=== PATIENT | male | born 1950 | race Caucasian/White ===

== ENCOUNTER 2017-10-19 18:35 | Inpatient (IN) | payer OTHER ==
[~2017-10-19] VITALS: Ht 185.4 cm; Wt 132.9 kg
[2017-10-19 18:35] VITALS: BP 105/48
[~2017-10-19 18:35] MED LIST: ASPIR 8181 MG PO; LEVAQUIN 500 M500 MG PO; TESSALON PERLE100 MG PO
[2017-10-19 19:11] LABS: ABSOLUTE NEUTROPHILS 17.4 thou/uL (1.4-8.2); BASOPHILS 0.2 % (0.0-2.0); EOSINOPHILS 0.5 % (0.0-3.0); HEMATOCRIT 45.8 % (42.0-52.0); HEMOGLOBIN 15.7 gm/dL (14.0-18.0); LYMPHOCYTES 3.3 % (24.0-44.0); MCH 32.3 pg (26.0-34.0); MCHC 34.3 g/dL (28.0-37.0); MCV 93.9 fL (80.0-100.0); MONOCYTES 4.4 % (1.0-8.0); PLATELET COUNT 212 thou/uL (150-400); POLYS 91.6 % (36.0-66.0); RBC 4.88 mil/uL (4.50-6.00); RDW 14.6 % (10.5-14.5)
[2017-10-19 19:12] LABS: URINE BILIRUBIN NEGATIVE (Negative); URINE BLOOD 3+ (Negative); URINE CLARITY CLOUDY; URINE COLOR YELLOW; URINE GLUCOSE-RANDOM* NEGATIVE (Negative); URINE KETONES TRACE (Negative); URINE LEUKOCYTES-REFLEX 2+ (Negative); URINE NITRITE-REFLEX NEGATIVE (Negative); URINE PROTEIN (DIPSTICK) TRACE (Negative)
[2017-10-19 19:21] LABS: CREATININE 1.3 mg/dL (0.7-1.3); POTASSIUM 3.9 mmol/L (3.5-5.1)
[2017-10-19 19:23] LABS: CASTS None Seen /LPF (None Seen); SQUAMOUS 0-3 Few /LPF (0-3); URINE RBC 3-10 Few /HPF (0-2); URINE WBC-REFLEX >25 Many /HPF (0-5)
[2017-10-19 19:24] LABS: BACTERIA-REFLEX 1-9 Few /HPF (None Seen); CRYSTALS None Seen /LPF (None Seen)
[2017-10-19 19:28] LABS: ALBUMIN 3.7 g/dL (3.4-5.0); TOTAL BILIRUBIN 0.5 mg/dL (<0.1-1.0); TOTAL PROTEIN 7.7 g/dL (6.4-8.2)
[2017-10-19 21:36] VITALS: BP 97/48
[2017-10-19 22:37] VITALS: BP 130/90
[2017-10-19 22:58] VITALS: BP 98/43
[2017-10-20 04:46] VITALS: BP 97/62
[2017-10-20 05:19] LABS: HEMATOCRIT 42.7 % (42.0-52.0); HEMOGLOBIN 14.6 gm/dL (14.0-18.0); MCHC 34.3 g/dL (28.0-37.0); MCV 93.4 fL (80.0-100.0); RBC 4.58 mil/uL (4.50-6.00); RDW 14.5 % (10.5-14.5); WBC 19.9 thou/uL (4.0-11.0)
[2017-10-20 05:28] LABS: CALCIUM 8.2 mg/dL (8.5-10.1); CREATININE 1.1 mg/dL (0.7-1.3); POTASSIUM 3.6 mmol/L (3.5-5.1)
[2017-10-20 07:33] VITALS: BP 98/54
[2017-10-20 16:04] VITALS: BP 110/40
[2017-10-20 19:56] VITALS: BP 102/55
[2017-10-21 04:31] VITALS: BP 94/43
[2017-10-21 07:55] VITALS: BP 105/54
[2017-10-21 16:05] VITALS: BP 127/61
[2017-10-21 20:53] VITALS: BP 147/75
[2017-10-22 08:05] VITALS: BP 131/73
[2017-10-22 09:48] LABS: HEMATOCRIT 39.2 % (42.0-52.0); HEMOGLOBIN 13.6 gm/dL (14.0-18.0); MCH 32.3 pg (26.0-34.0); MCHC 34.8 g/dL (28.0-37.0); MCV 92.8 fL (80.0-100.0); RBC 4.22 mil/uL (4.50-6.00); RDW 14.5 % (10.5-14.5); WBC 13.2 thou/uL (4.0-11.0)
[2017-10-22 10:00] LABS: ALBUMIN 2.6 g/dL (3.4-5.0); CALCIUM 8.3 mg/dL (8.5-10.1); CREATININE 0.9 mg/dL (0.7-1.3); MAGNESIUM 1.9 mg/dL (1.8-2.4); POTASSIUM 3.7 mmol/L (3.5-5.1); TOTAL BILIRUBIN 0.3 mg/dL (<0.1-1.0); TOTAL PROTEIN 6.6 g/dL (6.4-8.2)
[2017-10-22] MEDS ORDERED: KEFLEX500 M1 PO (11:33)
[2017-10-22 12:27] VITALS: BP 131/73
== END 2017-10-22 12:48 | disposition home or self-care (01) | DRG 871 ==
LOC: ER 18:35 → EROBS 21:01 → 4W 21:01 → SICU 10-21 18:42
PROVIDERS: Internal Medicine; Nurse Practitioner Acute Care; Physician Assistant
DX: A41.9 Sepsis, unspecified organism (principal); E43 Unspecified severe protein-calorie malnutrition; N39.0 Urinary tract infection, site not specified; F17.210 Nicotine dependence, cigarettes, uncomplicated; R73.9 Hyperglycemia, unspecified; E66.9 Obesity, unspecified; Z68.38 Body mass index [BMI] 38.0-38.9, adult; Z79.82 Long term (current) use of aspirin; Z79.899 Other long term (current) drug therapy; Z80.42 Family history of malignant neoplasm of prostate
CPT/HCPCS: 10040; 15002

== ENCOUNTER 2018-02-21 09:44 | Emergency (ER) | payer OTHER ==
[~2018-02-21] VITALS: Ht 185.4 cm; Wt 129.3 kg
[~2018-02-21 09:44] MED LIST changes: +KEFLEX500 M1 PO
[2018-02-21] MEDS ORDERED: WELLBUTRIN XL300 MG PO (09:59)
[2018-02-21] MEDS ORDERED: LIPITOR 20 MG T20 M1 PO (10:00)
[2018-02-21 10:40] LABS: ABSOLUTE NEUTROPHILS 6.6 thou/uL (1.4-8.2); BASOPHILS 0.8 % (0.0-2.0); EOSINOPHILS 3.8 % (0.0-3.0); HEMATOCRIT 43.4 % (42.0-52.0); LYMPHOCYTES 19.1 % (24.0-44.0); MCH 32.4 pg (26.0-34.0); MCHC 34.6 g/dL (28.0-37.0); MCV 93.4 fL (80.0-100.0); MONOCYTES 7.3 % (1.0-8.0); PLATELET COUNT 288 thou/uL (150-400); RBC 4.64 mil/uL (4.50-6.00); RDW 14.1 % (10.5-14.5); WBC 9.5 thou/uL (4.0-11.0)
[2018-02-21 10:50] LABS: CALCIUM 9.2 mg/dL (8.5-10.1); CREATININE 1.1 mg/dL (0.7-1.3); POTASSIUM 4.4 mmol/L (3.5-5.1)
[2018-02-21] MEDS ORDERED: ATIVAN0.5 MG PO (12:13)
[2018-02-21 12:15] VITALS: BP 148/88
== END 2018-02-21 13:00 | disposition home or self-care (01) ==
LOC: ER 09:44
PROVIDERS: Nurse Practitioner Family
DX: N63.0 Unspecified lump in unspecified breast (principal); F41.9 Anxiety disorder, unspecified; E78.00 Pure hypercholesterolemia, unspecified; F17.210 Nicotine dependence, cigarettes, uncomplicated

== ENCOUNTER 2019-05-19 09:12 | Inpatient (IN) | payer OTHER ==
[~2019-05-19] VITALS: Ht 185.4 cm; Wt 122.9 kg
[~2019-05-19 09:12] MED LIST changes: +ATIVAN0.5 MG PO; +LIPITOR 20 MG T20 M1 PO; +WELLBUTRIN XL300 MG PO
[2019-05-19 09:14] VITALS: BP 165/84
[2019-05-19 09:39] LABS: ABSOLUTE NEUTROPHILS 6.7 thou/uL (1.4-8.2); BASOPHILS 0.5 % (0.0-2.0); EOSINOPHILS 3.5 % (0.0-3.0); HEMATOCRIT 46.7 % (42.0-52.0); HEMOGLOBIN 15.7 gm/dL (14.0-18.0); LYMPHOCYTES 16.6 % (24.0-44.0); MCH 32.3 pg (26.0-34.0); MCHC 33.7 g/dL (28.0-37.0); MCV 95.9 fL (80.0-100.0); MONOCYTES 7.6 % (1.0-8.0); PLATELET COUNT 208 thou/uL (150-400); POLYS 71.8 % (36.0-66.0); RBC 4.87 mil/uL (4.50-6.00); RDW 14.2 % (10.5-14.5); WBC 9.3 thou/uL (4.0-11.0)
[2019-05-19 09:48] LABS: CALCIUM 9.1 mg/dL (8.5-10.1); POTASSIUM 4.2 mmol/L (3.5-5.1)
[2019-05-19 09:51] LABS: APTT 27.7 Seconds (24.5-32.8); PROTIME 10.5 Seconds (9.3-11.4)
[2019-05-19 09:54] LABS: ALBUMIN 3.7 g/dL (3.4-5.0); TOTAL BILIRUBIN 0.5 mg/dL (<0.1-1.0); TOTAL PROTEIN 7.8 g/dL (6.4-8.2)
[2019-05-19 11:03] LABS: CHOLESTEROL 241 mg/dL (<200); HDL CHOLESTEROL 55 mg/dL (>40); LDL CHOLESTEROL 166 mg/dL (<100); TC:HDL 4.4 Ratio (Not establshd); TRIGLYCERIDE 103 mg/dL (<150); VLDL 21 mg/dL (<40)
[2019-05-19 11:04] VITALS: BP 129/79
[2019-05-19 11:10] LABS: URINE BILIRUBIN NEGATIVE (Negative); URINE BLOOD NEGATIVE (Negative); URINE CLARITY CLEAR; URINE COLOR YELLOW; URINE GLUCOSE-RANDOM* NEGATIVE (Negative); URINE KETONES NEGATIVE (Negative); URINE LEUKOCYTES-REFLEX NEGATIVE (Negative); URINE NITRITE-REFLEX NEGATIVE (Negative); URINE PROTEIN (DIPSTICK) NEGATIVE (Negative); URINE UROBILINOGEN 0.2 E.U./dl (0.2-1.0)
[2019-05-19 11:29] VITALS: BP 126/76; BP 144/68
[2019-05-19 11:50] VITALS: BP 152/88
[2019-05-19 15:30] VITALS: BP 125/59
--- NOTE | 2019-05-19 16:16 | NUR ---
ASSUMED CARE AT 1150. ASSESSMENT CHARTED. DAUGHTER AT BEDSIDE UPON ADMISSION. ADMISSION PAPERWORK SIGNED. ADMISSION CHARTING COMPLETE. MRI COMPLETE. PT STATES NO PAIN AT THIS TIME. NEUROLOGIST HAS SPOKEN WITH THE PATIENT.
[2019-05-19 16:17] LABS: FOLIC ACID 8.2 ng/mL (8.6-58.9)
--- NOTE | 2019-05-19 18:12 | NUR ---
ASSUMED CARE FOR PT AT 1150. ASSESSMENTS CHARTED. PT STATES NO PAIN. MRI AND CT COMPLETE. PT LIVES WITH DAUGHTER AND EXTENDED FAMILY.
[2019-05-19 20:10] VITALS: BP 118/66
[2019-05-20 00:06] LABS: GLYCOHEMOGLOBIN (HGB A1C) 6.1 % (4.8-5.6)
[2019-05-20 00:15] VITALS: BP 121/70
--- NOTE | 2019-05-20 01:28 | NUR ---
ASSESSMENTS CHARTED. MEDS GIVEN CHARTED. PATIENT CAME IN WITH POSSIBLE STROKE. ALERT AND ORIENTED, NSR ON TELEMETRY. LUNGS ARE CLEAR ON ROOM AIR. PATIENT HAS A FAIR AMOUNT OF YELLOW THICK SPUTUM PRODUCTION WITH PRODUCTIVE COUGH. ACCU CHECK ACHS NO SSI. UP WITH STANDBY ASSIST DUE TO FALL AT HOME. HX OF BILATERAL SHOULDER ARTHRITIS. SKIN IS INTACT. CXR- NO ACUTE PULM. PROCESS, MRI BRAIN-UNREMARKABLE, CT CHEST-CHRONIC LOWER LOBE BRONCHIECTASIS, MRI NECK-UNREMARKABLE. FALL PRECAUTIONS IN PLACE. DENIES CURRENT PAIN.
[2019-05-20 04:39] VITALS: BP 104/52
[2019-05-20 07:52] VITALS: BP 134/85
--- NOTE | 2019-05-20 10:20 | EKG ---
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 : 1950 Requested By: Madhuri Martinez Order Number: [id number] MD: Prashant June Measurements Intervals [place] Rate: 70 P: 52 NJ: 179 QRS: 65 QRSD: 119 T: 60 QT: 416 QTc: 449 Interpretive Statements Sinus rhythm Nonspecific intraventricular conduction delay Compared to ECG 07/24/2014 14:50:15 Intraventricular conduction delay now present Electronically Signed On 05-20-2019 10:19:55 CERTIFIED PEER SPECIALIST by Prashant June [email or web address] <ELECTRONICALLY SIGNED> By: Prashant June MD 05/20/19 1019 0929 0929 MD DULCE Manley
[2019-05-20 11:27] VITALS: BP 124/66
[2019-05-20 16:38] VITALS: BP 125/62
[2019-05-20 19:16] VITALS: BP 103/62
--- NOTE | 2019-05-20 19:20 | NUR ---
ASSUMED CARE OF PATIENT AT 0700. ASSESSMENTS CHARTED. TELE PRINTED AND PLACED IN CHART. PATIENT COMPLAINS OF BILATERAL SHOULDER PAIN WHICH WAS HELPED WITH TYLENOL. PATIENT'S DAUGHTER AT THE BEDSIDE TODAY WITH NUMEROUS QUESTIONS ABOUT ALL OF THE PATIENT'S CARE. PATIENT AMBULATED THE UNIT. PATIENT TO CONTINUE WITH POC.
--- NOTE | 2019-05-21 02:04 | NUR ---
ASSESSMENTS CHARTED, MEDS GIVEN CHARTED. PATIENT MOVED TO ROOM 201 DURING THE DAY DUE TO NOISE LEVEL ON THE UNIT. PATIENT DOING A NOCTURNAL OVERNIGHT STUDY WITH RESPIRATORY THERAPY. PATIENT HAS REQUESTED CONSULT WITH PSYC DOCTOR DUE TO INCREASED ANXIETY LEVELS.
[2019-05-21 04:36] VITALS: BP 129/70
[2019-05-21 07:51] VITALS: BP 133/61
--- NOTE | 2019-05-21 07:52 | NUR ---
Stat order of Echo, Echo called, no answer.
--- NOTE | 2019-05-21 09:36 | NUR ---
CALLING ECHO AGAIN, STILL NO RESPONSE.
--- NOTE | 2019-05-21 10:43 | NUR ---
Was notified that the swallowing test is negative, patient can be on his Carb Cntrl DM diet, thin liquid.
[2019-05-21 16:10] VITALS: BP 117/57
--- NOTE | 2019-05-21 16:37 | 2DMMODE ---
[facility] [address] [place] [address] 2 D/M-MODE ECHOCARDIOGRAM Name: AYAH YEE Room #: 201-P ADM IN M.R.#: [id number] Admission: 05/19/19 Attend Phys: Madhuri Nicholson Discharge: Date of : 46 Report #: [id number] THIS REPORT FOR: //name// APPROVED REPORT Study performed: 05/21/2019 15:42:41 EXAM: Comprehensive 2D, Doppler, and color-flow Echocardiogram Patient Location: Bedside Room #: 201 Status: routine BSA: 2.42 HR: 66 bpm BP: 133/61 mmHg Rhythm: NSR Other Information Study Quality: Technically DifficultTechnically Limited Technically limited study due to body habitus, lung disease, inability to position patient. Indications COPD Diabetes Hypertension/HDD Possible TIA Echo Enhancing Agent Indication: Rule out Shunt Agent(s) / Amount(s) Used: Agitated Saline 7 cc 2D Dimensions IVC: 17.00 mm Aortic Valve AoV Peak Jon.: 1.40 m/s AO Peak Gr.: 7.89 mmHg LVOT Max P.48 mmHg LVOT Max V: 1.06 m/s Mitral Valve E/A Ratio: 0.8 MV Decel. Time: 264.74 ms MV E Max Jon.: 0.78 m/s MV A Jon.: 0.92 m/s [facility] [address] [place] [address] 2 D/M-MODE ECHOCARDIOGRAM Name: AYAH YEE Room #: 201-P ADM IN M.R.#: [id number] Admission: 05/19/19 Attend Phys: Madhuri Nicholson Discharge: Date of : 46 Report #: [id number] MV PHT: 76.77 ms IVRT: 138.41 ms Pulmonary Vein P Vein S: 0.40 m/s P Vein A: 0.19 m/s P Vein D: 0.35 m/s P Vein A Dur.: 87.7 msec P Vein S/D Ratio: 1.14 Left Ventricle The left ventricle is normal size. There is normal LV segmental wall motion. There is normal left ventricular wall thickness. Left ventricular systolic function is normal. The left ventricular ejection fraction is within the normal range. LVEF is 60-65%. Mild diastolic dysfunction is present (impaired relaxation pattern). Right Ventricle The right ventricle is normal size. The right ventricular systolic function is normal. Atria The left atrium size is normal. No shunting seen on a very limited contrast bubble injection The right atrium size is normal. Aortic Valve The aortic valve is grossly normal. No aortic regurgitation is present. There is no aortic valvular stenosis. Mitral Valve The mitral valve is normal in structure. There is no mitral valve regurgitation noted. No evidence of mitral valve stenosis. Tricuspid Valve The tricuspid valve is normal in structure. There is no tricuspid valve regurgitation noted. Pulmonic Valve The pulmonary valve is normal in structure. There is no pulmonic valvular regurgitation. Great Vessels The aortic root is normal in size. IVC is normal in size and collapses >50% with inspiration. Pericardium There is no pericardial effusion. [facility] [address] [place] [address] 2 D/M-MODE ECHOCARDIOGRAM Name: AYAH YEE Room #: 201-P ADM IN .R.#: [id number] Admission: 05/19/19 Attend Phys: Madhuri Nicholson Discharge: Date of : 46 Report #: [id number] <Conclusion> Technically very limited study Left ventricular systolic function is normal. There is normal LV segmental wall motion. LVEF is 60-65%. Mild diastolic dysfunction No shunting seen on a very limited contrast bubble injection The aortic valve is grossly normal. No aortic regurgitation or stenosis The mitral valve is normal in structure. No mitral valve regurgitation Unable to assess pulmonary artery pressure. There is no pericardial effusion. <ELECTRONICALLY SIGNED> By: Tariq Castro MD, FACC 05/21/191635 35 35 Tariq Castro MD, FACC /INF
--- NOTE | 2019-05-21 17:22 | NUR ---
A/O, clam and cooperative; afebrile; denied pain; no n/v; reported that video shallowing test done, patient can have Carb Contrl DM diet with thin liquid; echo showed normal results, EF 60=65%; BG within control; room air. Patient sits on the chair, watching TV, will keep monitoring.
[2019-05-21 19:03] VITALS: BP 114/56
[2019-05-21 20:06] LABS: ANA INTERPRETATION Negative (())
[2019-05-22 00:45] VITALS: BP 123/65
[2019-05-22 03:47] VITALS: BP 110/46
[2019-05-22 07:19] VITALS: BP 133/70
--- NOTE | 2019-05-22 07:27 | NUR ---
patient cares were assumed at shift change , meds were passed after patient was assessed. patient had family at the bed clyde till approx 11pm. patient went to bed after and sleept the rest of this shift. no am meds but a flush and nursing did not awake him for that. hourly rounds were done
[2019-05-22] MEDS ORDERED: NORVASC10 MG PO (10:06)
[2019-05-22] MEDS ORDERED: LIPITOR80 MG PO (10:06)
[2019-05-22] MEDS ORDERED: CLOPIDOGREL75 MG PO (10:06)
[2019-05-22] MEDS ORDERED: GLUCOPHAGE500 MG PO (10:07)
[2019-05-22] MEDS ORDERED: LEXAPRO 10 MG T10 M1 PO (10:07)
[2019-05-22] MEDS ORDERED: FOLIC ACID1 MG PO (10:07)
[2019-05-22] MEDS ORDERED: ADVAIR 250-501 EACH INH (10:08)
[2019-05-22 10:53] VITALS: BP 133/70
[2019-05-22 12:02] VITALS: BP 133/70
--- NOTE | 2019-05-22 12:46 | NUR ---
FAXED REFERRAL TO [facility] SPOKE WITH COURTNEY IN INTAKE SHE RECEIVED REFERRAL AND CAN ACCEPT. PT DISCHARGING TODAY TO HOME WITH [facility] HH FAXED DC ORDERS/SUMMARY SPOKE WITH COURTNEY SHE RECEIVED DC ORDERS AND WILL NOTIFY PT TIME OF VISITS.
[2019-05-22 13:00] VITALS: BP 133/70
--- NOTE | 2019-05-22 13:00 | NUR ---
PT CARE ASSUMED APPROX 0700. PT DENIED PAIN AND SOA. VSS. MEDICATION RELIEVED NAUSEA FROM EARLIER. PT UP WITH SBGisela. CRISSY. APPROVED FOR DISCHARGE. DISCHARGE EDUCATION AND PAPERWORK REVIEWED WITH PT AND PT'S DAUGHTER. BOTH DENIED QUESTIONS AND CONCERNS REGARDING POST HOSPITAL CARE AND F/U. IV OUT, TELE BOX OFF. HOSPITAL STAFF ESCORTED PT OUT TIMELY APPROX 1300.
--- NOTE | 2019-05-22 14:17 | NUR ---
patient with 5N eval and too high level for 5N. Sp with patient plan dc home with HH. He has family living with him and able to assist. Discussed HH options patient with no preference and agreeable to referral to [facility]. Referral sent patient to dc home today.
== END 2019-05-22 13:30 | disposition home or self-care (01) | DRG 66 ==
LOC: ER 09:12 → EROBS 11:08 → 2N 11:08 → ENTRNSPT 05-22 13:10 → 2N 05-22 13:30
PROVIDERS: Emergency Medicine; Psychiatry & Neurology Neurology; ADMIT Hospitalist
DX: I63.412 Cerebral infarction due to embolism of left middle cerebral artery (principal); I63.81 Other cerebral infarction due to occlusion or stenosis of small artery; F17.210 Nicotine dependence, cigarettes, uncomplicated; I10 Essential (primary) hypertension; E78.5 Hyperlipidemia, unspecified; E11.9 Type 2 diabetes mellitus without complications; J47.9 Bronchiectasis, uncomplicated; R59.1 Generalized enlarged lymph nodes; E66.9 Obesity, unspecified; M19.012 Primary osteoarthritis, left shoulder; M19.011 Primary osteoarthritis, right shoulder; F41.9 Anxiety disorder, unspecified; G47.33 Obstructive sleep apnea (adult) (pediatric); K59.00 Constipation, unspecified; Z85.3 Personal history of malignant neoplasm of breast; Z82.3 Family history of stroke; Z79.82 Long term (current) use of aspirin; Z80.42 Family history of malignant neoplasm of prostate; Z79.899 Other long term (current) drug therapy; Z68.35 Body mass index [BMI] 35.0-35.9, adult
CPT/HCPCS: 10081

== ENCOUNTER → 2019-06-01 | Outpatient (CLI) | payer OTHER ==
[~2019-06-01] MED LIST changes: +ADVAIR 250-501 EACH INH; +CLOPIDOGREL75 MG PO; +FOLIC ACID1 MG PO; +GLUCOPHAGE500 MG PO; +LEXAPRO 10 MG T10 M1 PO; +LIPITOR80 MG PO; +NORVASC10 MG PO
--- NOTE | 2019-06-04 18:40 | SLE ---
[facility] [place] [place] [address] POLYSOMNOGRAPHY STUDY Name: AYAH YEE Room #: REG CLI [facility]#: [id number] Admission: 06/01/19 Attend Phys: Reggie Browne MD Discharge: Date of : 46 Report #: [id number] THIS REPORT FOR: //name// CC: Reggie Lucio DATE OF SERVICE: 06/01/2019 SLEEP STUDY The patient is a 69-year-old who weighs 275 pounds with a BMI of 36.3. The patient's Gresham score was 14. The patient underwent split night study performed at [facility]. During the night study, the patient spent 528 minutes in bed and slept for 330 minutes with a sleep efficiency of 62%. Sleep latency was 22 minutes with a REM latency of 294 minutes. Sleep architecture showed increased stage 1 and stage 2 sleep, absent slow wave and reduced REM sleep, which was only 0.3% of the total sleep time. During the initial diagnostic portion of the study, the patient slept for 153 minutes. During that time, there were 47 obstructive apneas, no mixed or central apneas and 25 hypopneas. The patient's apnea-hypopnea index was 28 per hour. REM sleep was not seen during the diagnostic portion. Supine AHI was 46.9 per hour. EKG monitoring revealed an average heart rate of 59 beats per minute. No sustained arrhythmias observed. PLMS was seen at an index of 18 per hour and 1 per hour caused EEG arousals. PLMS completely resolved while the patient slept on CPAP. Nocturnal oximetry study during the diagnostic portion revealed an average oxygen saturation of 91% with a lowest of 84%. Thirty minutes were spent in oxygen saturation less than 89%. The patient met the criteria for CPAP initiation. It was started at 7 cm water and titrated up to 13 cm water. At the final pressure, the patient slept for 13 minutes. The patient had lateral sleep, but no supine or REM sleep. The patient's AHI was reduced to 0 per hour and oxygen saturation remained above 92%. IMPRESSION: 1. Moderate sleep apnea-hypopnea syndrome with worsening during supine sleep. Absence of rapid eye movement sleep can underestimate the severity of sleep apnea. Total apnea-hypopnea index 28 per hour with a supine apnea-hypopnea [facility] [address] [place] [address] POLYSOMNOGRAPHY STUDY Name: AYAH YEE Wendy [id number] Admission: 06/01/19 Attend Phys: Reggie Browne MD Discharge: Date of : 46 Report #: [id number] index of 46.9 per hour. 2. Mild periodic limb movements of sleep, which subsequently resolved while the patient slept on continuous positive airway pressure and as such does not need to be treated. 3. Nocturnal hypoxia secondary to obstructive sleep apnea, but resolved with continuous positive airway pressure. RECOMMENDATIONS: 1. CPAP at 13 cm water completely eliminated the patient's sleep apnea and should be used on a nightly basis. It should be noted that supine or REM sleep was not seen on the final pressure and I would recommend review of the download data to make sure AHI remains less than 5 per hour. 2. Avoid PRINTING MACHINIST depressants. 3. Cautioned regarding driving until symptoms of sleep apnea resolve with the use of CPAP. 4. The patient had reduced sleep efficiency. If patient's insomnia persists despite effective use of CPAP, then it should be further evaluated and treated according to the etiology. <ELECTRONICALLY SIGNED> By: Reggie Browne MD 06/04/19 1840 0 4 Reggie Browne MD /nt
== END ==
LOC: SLEEPLAB 19:27
DX: G47.30 Sleep apnea, unspecified (principal); G47.33 Obstructive sleep apnea (adult) (pediatric); R09.02 Hypoxemia

== ENCOUNTER → 2019-06-27 | Outpatient (CLI) | payer OTHER | LOC: CAT 11:25 | DX: Z13.6 Encounter for screening for cardiovascular disorders (principal); I25.10 Atherosclerotic heart disease of native coronary artery without angina pectoris; E78.00 Pure hypercholesterolemia, unspecified ==

== ENCOUNTER → 2019-06-27 | Outpatient (CLI) | payer OTHER | LOC: SJCVC 11:55 | DX: R06.00 Dyspnea, unspecified (principal); I10 Essential (primary) hypertension; I63.9 Cerebral infarction, unspecified; E78.00 Pure hypercholesterolemia, unspecified; M19.90 Unspecified osteoarthritis, unspecified site; G47.30 Sleep apnea, unspecified; Z79.899 Other long term (current) drug therapy ==

== ENCOUNTER 2019-08-13 10:09 | Emergency (ER) | payer OTHER ==
[~2019-08-13] VITALS: Ht 185.4 cm; Wt 124.3 kg
[2019-08-13] MEDS ORDERED: LEXAPRO 10 MG T10 M2 PO (10:27)
[2019-08-13 10:35] LABS: ABSOLUTE NEUTROPHILS 12.2 thou/uL (1.4-8.2); BASOPHILS 0.5 % (0.0-2.0); EOSINOPHILS 0.5 % (0.0-3.0); HEMATOCRIT 45.5 % (42.0-52.0); HEMOGLOBIN 15.3 gm/dL (14.0-18.0); LYMPHOCYTES 7.9 % (24.0-44.0); MCH 32.8 pg (26.0-34.0); MCHC 33.6 g/dL (28.0-37.0); MCV 97.6 fL (80.0-100.0); MONOCYTES 6.2 % (1.0-8.0); POLYS 84.9 % (36.0-66.0); RBC 4.67 mil/uL (4.50-6.00); RDW 14.7 % (10.5-14.5); WBC 15.4 thou/uL (4.0-11.0)
[2019-08-13 11:15] LABS: PLATELET COUNT 227 thou/uL (150-400)
[2019-08-13 11:24] LABS: CALCIUM 8.9 mg/dL (8.5-10.1); CREATININE 0.9 mg/dL (0.7-1.3); POTASSIUM 3.8 mmol/L (3.5-5.1)
--- NOTE | 2019-08-13 11:34 | EKG ---
[facility] [place] [address] ELECTROCARDIOGRAM REPORT Name: AYAH YEE Room #: REG [facility]#: [id number] Admission: 08/13/19 Attend Phys: Discharge: Date of : 46 Report #: [id number] THIS REPORT FOR: cc: Vika Lucio MD, Lisa A. 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
--- NOTE | 2019-08-13 11:35 | EKG ---
[facility] [place] [address] ELECTROCARDIOGRAM REPORT Name: AYAH YEE Room #: REG [facility]#: [id number] Admission: 08/13/19 Attend Phys: Discharge: Date of : 46 Report #: [id number] THIS REPORT FOR: cc: Vika Lucio MD, Lisa A. 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
[2019-08-13] MEDS ORDERED: AMOXICILLIN500 M1 PO (13:04)
[2019-08-13 13:07] VITALS: BP 108/59
== END 2019-08-13 13:07 | disposition home or self-care (01) ==
LOC: ER 10:09
PROVIDERS: Emergency Medicine
DX: R07.89 Other chest pain (principal); R91.8 Other nonspecific abnormal finding of lung field; E66.9 Obesity, unspecified; E78.5 Hyperlipidemia, unspecified; F17.210 Nicotine dependence, cigarettes, uncomplicated; Z68.36 Body mass index [BMI] 36.0-36.9, adult

== ENCOUNTER → 2021-05-15 | Outpatient (CLI) | payer OTHER ==
[~2021-05-15] MED LIST changes: +AMOXICILLIN500 M1 PO; +LEXAPRO 10 MG T10 M2 PO
== END | disposition home or self-care (01) ==
LOC: SJCVC 10:41
PROVIDERS: ATTEND Internal Medicine Cardiovascular Disease
DX: I45.10 Unspecified right bundle-branch block (principal); E78.00 Pure hypercholesterolemia, unspecified; I10 Essential (primary) hypertension; R93.1 Abnormal findings on diagnostic imaging of heart and coronary circulation; R07.9 Chest pain, unspecified; R60.9 Edema, unspecified; I63.9 Cerebral infarction, unspecified; R06.00 Dyspnea, unspecified; M19.90 Unspecified osteoarthritis, unspecified site; F41.9 Anxiety disorder, unspecified; R94.31 Abnormal electrocardiogram [ECG] [EKG]; J45.909 Unspecified asthma, uncomplicated; Z79.84 Long term (current) use of oral hypoglycemic drugs; Z79.899 Other long term (current) drug therapy; Z88.8 Allergy status to other drugs, medicaments and biological substances

== ENCOUNTER → 2021-05-20 | Outpatient (CLI) | payer OTHER ==
[~2021-05-20] MED LIST changes: +DESYREL150 MG PO
== END ==
LOC: SJCVCIMAG 10:57
PROVIDERS: ATTEND Internal Medicine Cardiovascular Disease
DX: I49.3 Ventricular premature depolarization (principal); I49.1 Atrial premature depolarization; R00.0 Tachycardia, unspecified; R93.1 Abnormal findings on diagnostic imaging of heart and coronary circulation; R07.9 Chest pain, unspecified; I10 Essential (primary) hypertension; E78.00 Pure hypercholesterolemia, unspecified; R60.9 Edema, unspecified; I63.9 Cerebral infarction, unspecified; R06.00 Dyspnea, unspecified; F41.9 Anxiety disorder, unspecified; M19.90 Unspecified osteoarthritis, unspecified site; J45.909 Unspecified asthma, uncomplicated; E11.9 Type 2 diabetes mellitus without complications; E78.5 Hyperlipidemia, unspecified; G47.30 Sleep apnea, unspecified; Z87.891 Personal history of nicotine dependence; Z72.89 Other problems related to lifestyle; Z79.84 Long term (current) use of oral hypoglycemic drugs; Z79.899 Other long term (current) drug therapy; Z88.8 Allergy status to other drugs, medicaments and biological substances

== ENCOUNTER → 2021-05-22 | Outpatient (CLI) | payer OTHER ==
[~2021-05-22] VITALS: Ht 185.4 cm; Wt 121.6 kg
[2021-05-22 11:16] VITALS: BP 145/74
--- NOTE | 2021-05-22 14:46 | CATHLAB ---
[facility] [place] [address] INVASIVE PROCEDURE REPORT Name: AYAH YEE [id number] Admission: 05/22/21 Attend Phys: Prashant June MD Discharge: Date of : 46 Report #: [id number] THIS REPORT FOR: cc: Vika Lucio MD, Lisa A. MD Park, Jin S. MD ~ APPROVED REPORT Study performed: 05/22/2021 13:27:21 Patient Details Patient Status: Out-Patient Room #: The patient is a 71 year-old male Event Personnel Prashant June Software Developer Manager, Milton Payan RN RN, Jailyn Keene RTR Scrub, Chaitanya Toney RTR Monitor Procedures Performed Art Access - R femoral artery* Left Heart Cath w/or w/o Coronaries [id number] [facility] [address] Initial Mod Sed Same Phys/QHP 5y [id number] Indication Positive stress test, Chest pain Risk Factors Cerebrovascular Disease, Hypercholesterolemia, Hypertension, Diabetes Previous Procedures/Diagnoses Previous CVA Procedure Narrative The Right Groin^ was infiltrated with 1% Lidocaine subcutaneous anesthesia. A PINNACLE 4FR Sheath #[id number] sheath was inserted into the RFA^. Coronary angiography was performed using coronary diagnostic catheters. The right coronary system was accessed and visualized with a JR4 catheter. The left coronary system was accessed and visualized with a JL4 catheter. The left ventricle was accessed and visualized with a JR4 catheter. Hemostasis was obtained with manual pressure following sheath removal without any complications. The patient tolerated the procedure well and there were no complications associated with the procedure. There was no hematoma. [facility] [address] [place] [address] INVASIVE PROCEDURE REPORT Name: AYAH YEE Wendy Room #: REG CL [facility]#: [id number] Admission: 05/22/21 Attend Phys: Prashant June MD Discharge: Date of : 46 Report #: [id number] Intraoperative Conscious Sedation Sedation start time: 13:40 Case end Time: 14:03 Fentanyl 50 mcg Versed 1 mg Fluoro Time: 1.90 minutes Dose: DAP 6779.30 cGycm2 882 mGy Contrast Type and Amount: Omnipaque 50 ml Coronary Angiography The patient's coronary anatomy is right dominant. Diagnostic Cath Left Main The left main artery is a large-caliber vessel, appears angiographically normal. LAD The LAD is a moderate-sized caliber vessel, traverses the anterior wall and wraps around the apex. Appears angiographically normal. Diagonal 1 This is a moderate-sized caliber vessel, with no flow-limiting lesions. Diagonal 2 This is a moderate-sized caliber vesse, with mild disease in the proximal segment. Circumflex There is minimal plaquing in the midsegment. OM1 This is a moderate-sized caliber vessel, with no flow-limiting lesions. OM2 There is a small to moderate-sized caliber vessel, with no flow-limiting lesions. Right Coronary The RCA is a dominant vessel, appears angiographically normal. R PDA This is a moderate-sized caliber vessel, with no flow-limiting lesions. RPLV This is a moderate-sized caliber vessel, with no flow-limiting lesions. Left Ventriculography Left Ventriculography was not performed. Ejection Fraction was >55% based off patient's Nuclear Cardiac Stress Test. An LVEDP was measured and there is no gradient across the outflow tract. Hemodynamics The aortic pressure is 164/79 mmHg with a mean of 119 mmHg. The left ventricular pressure is 148/8 mmHg with a mean of mmHg. The left ventricular end diastolic pressure is 55 mmHg. [facility] [address] [place] [address] INVASIVE PROCEDURE REPORT Name: AYAH YEE Room #: REG CL [facility]#: [id number] Admission: 05/22/21 Attend Phys: Prashant June MD Discharge: Date of : 46 Report #: [id number] Conclusion 1. 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 2. This is a right dominant system. 3. There is normal LV systolic function. 4. Recommend risk factor management. <ELECTRONICALLY SIGNED> By: Prashant June MD 05/22/21 1445 1445 1445 Prashant June MD /INF
== END | disposition home or self-care (01) ==
LOC: CATH 07:13
PROVIDERS: ATTEND Internal Medicine Cardiovascular Disease
DX: R07.9 Chest pain, unspecified (principal); I25.10 Atherosclerotic heart disease of native coronary artery without angina pectoris; R94.39 Abnormal result of other cardiovascular function study; R06.00 Dyspnea, unspecified; I10 Essential (primary) hypertension; E11.9 Type 2 diabetes mellitus without complications; J44.9 Chronic obstructive pulmonary disease, unspecified; E78.00 Pure hypercholesterolemia, unspecified; G47.33 Obstructive sleep apnea (adult) (pediatric); Z98.890 Other specified postprocedural states; Z79.899 Other long term (current) drug therapy; Z86.73 Personal history of transient ischemic attack (TIA), and cerebral infarction without residual deficits; Z87.891 Personal history of nicotine dependence